=== PATIENT | male | born 1985 | race Caucasian/White ===

== ENCOUNTER 2018-01-14 02:56 | Emergency (ER) | payer SELFPAY ==
[2018-01-14] MEDS ORDERED: LORAZEPAM 2 MG INJ (03:51)
[2018-01-14] MEDS ORDERED: HALOPERIDOL 5 MG INJ (03:51)
[2018-01-14] MEDS ORDERED: DIPHENHYDRAMINE 50 MG INJ (03:51)
[2018-01-14] MEDS: LORAZEPAM 2 MG INJ IM (03:59)
[2018-01-14] MEDS: HALOPERIDOL 5 MG INJ IM (03:59)
[2018-01-14] MEDS: SOD CHLORIDE 0.9% 1,000 ML IV ×2 (03:59→05:56)
[2018-01-14] MEDS: DIPHENHYDRAMINE 50 MG INJ IM (03:59)
[2018-01-14 04:39] LABS: ADD MAN DIFF? NO
[2018-01-14 04:42] LABS: WHITE BLOOD COUNT 14.6 10^3/ul (4.8-10.8)
[2018-01-14 04:42] LABS: BASOPHILS % 0.3 % (0.0-2.0); HEMATOCRIT 45.6 % (42.0-52.0); HEMOGLOBIN 15.4 g/dl (14.0-18.0); LYMPHOCYTES # 1.1 10^3/ul (0.8-2.9); LYMPHOCYTES % 7.6 % (15.0-51.0); MEAN CORPUSCULAR HEMOGLOBIN 30.2 pg (29.0-33.0); MEAN CORPUSCULAR HGB CONC 33.8 g/dl (32.0-37.0); MEAN CORPUSCULAR VOLUME 89.4 fl (82.0-101.0); MEAN PLATELET VOLUME 9.7 fl (7.4-10.4); MONOCYTE # 0.8 10^3/ul (0.3-0.9); MONOCYTES % 5.4 % (0.0-11.0); NEUTROPHIL # 12.6 10^3/ul (1.6-7.5); NEUTROPHILS % 86.2 % (39.0-77.0); PLATELET COUNT 269 10^3/UL (140-415); RED CELL DISTRIBUTION WIDTH 12.2 % (11.5-14.5)
[2018-01-14 04:48] LABS: AMPHETAMINE/METHAMPHETAMINE Negative (NEGATIVE); BARBITURATES Negative (NEGATIVE); BENZODIAZEPINES Negative (NEGATIVE); CANNABINOIDS Negative (NEGATIVE); COCAINE Negative (NEGATIVE); OPIATES Negative (NEGATIVE)
[2018-01-14 05:02] LABS: INR 0.92; PROTIME 12.4 Sec (11.9-14.9)
[2018-01-14 05:30] LABS: ANION GAP 24 (8-16); BLOOD UREA NITROGEN 12 mg/dl (7-20); CALCIUM 8.6 mg/dl (8.4-10.2); CARBON DIOXIDE 23 mmol/L (21-31); CHLORIDE 111 mmol/L (97-110); CREATININE 0.74 mg/dl (0.61-1.24); GLUCOSE 127 mg/dl (70-220); SODIUM 154 mmol/L (135-144)
[2018-01-14] MEDS: DIPHTH/TET/ACEL PERTUSS (ADULT) 0.5 ML VIAL IM* (05:55)
== END 2018-01-14 15:30 | disposition home or self-care (01) ==
LOC: E/R 02:56
DX: F10.120 Alcohol abuse with intoxication, uncomplicated (principal); E86.0 Dehydration; R51 Headache; R07.9 Chest pain, unspecified
CPT/HCPCS: 36415; 70450; 70486; 71045; 72125; 80048; 80306; 80307; 85025; 85610; 85730; 90471; 90715; 93005; 96372; 99285-25